=== PATIENT | female | born 1980 | race Caucasian/White ===

== ENCOUNTER 2019-07-20 07:07 | Observation (INO) | payer OTHER, SELFPAY ==
--- NOTE | ~2019-07-20 | NM_ITS ---
EXAMINATION: NM hepatobiliary w pharm DATE: 07/21/2019 09:16 INDICATION: Right lower quadrant abdominal pain. Nausea and vomiting. COMPARISON: CT abdomen and pelvis 07/20/2019 TECHNIQUE: 6.0 mCi Tc-99m mebrofenin (Choletec) was administered intravenously. Scintigraphic images of the abdomen were obtained for one hour. Then, 1.6 mcg sincalide (Kinevac) IV was administered, an d imaging was continued for 30 minutes. FINDINGS: There is normal clearance of radiotracer from the blood pool. There is homogeneous tracer u ptake by the liver. Activity progresses to the bowel and gallbladder. Gallbladder ejection fraction (GBEF) was 41%. Note that most patients with gallbladder dysfunction have GBEF < 35%, which overlaps with the broad normal range of 10-90%. IMPRESSION: 1. Normal hepatobiliary scintigraphy. Reviewed, dictated and finalized at location A. UITE DEVELOPER
--- NOTE | ~2019-07-20 | CT_ITS ---
EXAMINATION: CT cervical spine w con DATE: 07/20/2019 07:57 INDICATION: Neck pain. TECHNIQUE: Computed tomography (CT) of the cervical spine was performed with 100 mm Omnipaque 350 int ravenous contrast. Automated exposure control and iterative reconstruction technique were employed. T he dose-length product was 395.34 mGy-cm. COMPARISON: Cervical spine radiographs 02/26/2019 FINDINGS: There is kyphosis of cervical spine. There is 2 mm retrolisthesis of C5 on C6. There are di sc replacements at C5-C6 and C6-C7. Vertebral body heights are normal. There is mildly decreased disc height at C4-C5. The following disc levels are specifically discussed: C2-C3: There is no uncovertebral joint osteoarthritis. There is mild bilateral facet joint osteoarthr itis. There is no neural foraminal stenosis. There is no central canal stenosis. C3-C4: There is mild bilateral uncovertebral joint osteoarthritis. There is mild bilateral facet join t osteoarthritis. There is no neural foraminal stenosis. There is no central canal stenosis. C4-C5: There is no uncovertebral joint osteoarthritis. There is no facet joint osteoarthritis. There is no neural foraminal stenosis. There is no central canal stenosis. C5-C6: There is moderate right and mild left uncovertebral joint osteoarthritis. There is mild right facet joint osteoarthritis. There is mild bilateral neural foraminal stenosis. There is mild central canal stenosis. C6-C7: There is no uncovertebral joint osteoarthritis. There is no facet joint osteoarthritis. There is no neural foraminal stenosis. There is no central canal stenosis. C7-T1: There is no uncovertebral joint osteoarthritis. There is mild bilateral facet joint osteoarthr itis. There is no neural foraminal stenosis. There is no central canal stenosis. IMPRESSION: 1. Mild cervical spondylosis. 2. Disc replacements at C5-C6 and C6-C7. Reviewed, dictated and finalized at location A. R ENGINEER
--- NOTE | ~2019-07-20 | CT_ITS ---
EXAMINATION: CT abdomen pelvis w con DATE: 07/20/2019 07:57 INDICATION: Right lower quadrant abdominal pain, nausea and vomiting TECHNIQUE: Computed tomography (CT) of the abdomen and pelvis was performed with 100 mL Omnipaque-350 intravenous contrast. Automated exposure control and iterative reconstruction technique were employe d. The dose-length product was 681.51 mGy-cm. COMPARISON: 09/09/2018 FINDINGS: Lung bases are clear. Heart size is normal. No pericardial or pleural effusion. Liver, gallbladder, s pleen, pancreas, bilateral adrenal glands and kidneys are normal. Normal appendix. No abnormal bowel wall thickening or obstruction. The uterus is not identified and has likely been surgically resected. Decompressed bladder is unremarkable. No free intraperitoneal gas or fluid. No pathologically enlarg ed abdominal or pelvic lymphadenopathy. There are Schmorl's nodes at multiple levels throughout the t horacic and lumbar spine. Old tract for a since removed intramedullary stone at the proximal right femu r. IMPRESSION: 1. No acute intra-abdominal/pelvic process. Reviewed, dictated and finalized at location A. LAND FIRE OPERATIONS SPECIALIST
[2019-07-20 07:11] VITALS: BP 122/87; PULSE 94; RESP 18; TEMP 36.3; O2SAT 100
--- NOTE | 2019-07-20 07:19 | ED.GENADULT ---
HPI - General Adult General Chief complaint: Nausea/Vomiting/Diarrhea Stated complaint: N/V Time Seen by Provider: 07/20/19 07:19 Source: patient Mode of arrival: ambulatory Limitations: no limitations History of Present Illness HPI narrative: Patient is a 39-year-old female who presents for evaluation of nausea, vomiting, diarrhea and abdominal pain. Abdominal pain is located in her lower abdomen, described as dull, cramping in nature worse in the right lower quadrant. Patient has had no associated dysuria or hematuria. She has had numerous episodes of nausea, nonbilious, nonbloody emesis yesterday, and watery diarrhea overnight. Patient states she has been unable to tolerate oral intake since Saturday. Patient last attended the [employer], where she had pulled pork and some alcohol. No other sick contacts. No one at home with similar symptoms. She denies fever. Patient states she had a C5/C6 surgery in April at [facility], and because she has been throwing up so much, she is not having neck pain and tingling in her hands. No recent falls or injuries. Related Data Allergies Allergy/AdvReac Type Severity Reaction Status Date / Time No Known Allergies Allergy Unverified 09/09/18 15:37 Review of Systems Review of Systems: Narrative: CONSTITUTIONAL: Denies fever, chills, or sweats. EYES: Denies visual changes, redness, or discharge. ENT: Denies rhinorrhea, congestion, sore throat, or otalgia. CARDIOVASCULAR: Denies chest pain, palpitations, or edema. RESPIRATORY: Denies cough or dyspnea. GASTROINTESTINAL: Reports abdominal pain, nausea, vomiting and diarrhea GENITOURINARY: Denies dysuria or hematuria. SKIN: Denies rash or itching. MUSCULOSKELETAL: Denies back pain, joint pain, or myalgia. NEUROLOGIC: Denies headache, numbness, or weakness, reports tingling in bilateral hands. PSYCHIATRIC: Reports anxiety PMFSH Surgical History Surgical History (Updated 07/20/19 @ 07:42 by Samantha Palacios MD) H/O: hysterectomy Social History Social History (Updated 07/20/19 @ 07:42 by Samantha Palacios MD) Smoking status: Never smoker Second hand tobacco smoke exposure: No Alcohol intake: current Drinks per week: 1 Substance use: never Gender identity (if verbalized by the patient): Female Exam Narrative: Exam Narrative: GENERAL: Awake, tearful, conversant HEAD: Normocephalic, atraumatic. EYES: PERRLA and EOMI. ENT: Nares clear, no rhinorrhea or epistaxis. Mucous membranes moist. NECK: Supple. CHEST: Clear to auscultation. No respiratory distress. HEART: Regular rate and rhythm. No murmur heard. Normal peripheral pulses. ABDOMEN: Soft, tender in right lower quadrant, left lower quadrant, no rebound, no rigidity, no guarding. EXTREMITIES: Normal range of motion. No edema. SKIN: Warm, dry, no rash. NEURO:No focal deficits. Alert and oriented x3 Course Course Emergency Course: Patient presented for evaluation of nausea, vomiting and diarrhea. Patient with some alcohol intake recently, this may be gastroenteritis versus food poisoning versus pancreatitis. The time of initial assessment, ABCs are intact, vital signs are stable. No tachycardia. Mucous membranes are somewhat dry. Patient has good tear production. No leukocytosis. Elevation in hemoglobin and hematocrit consistent with dehydration. No acute kidney injury or electrolyte abnormality. No UTI. CT of the cervical spine is stable. There is no injury from her vomiting to her disc replacement sites. As for the CT abdomen/pelvis, no sign of acute pancreatitis. Patient does have an elevation in lipase which may be secondary to the dehydration and vomiting. No sign of acute pancreatitis on imaging. Patient was reassessed and continued to have nausea and vomiting despite numerous antiemetics and pain medication. At this point, patient was offered admission to our facility, but then requested to be transferred to [facility]. I was able to obtai
[2019-07-20] MEDS: SODIUM CHLORIDE 0.9% IV 1,000 ML 999 ML IV CONT ×2 (07:24→08:05)
[2019-07-20] MEDS: ONDANSETRON INJ 4 MG/2 ML VIAL IV PUSH ×4 (07:24→23:06)
[2019-07-20 07:25] LABS: Basophils Absolute Auto 0.1 K/mm3 (0.0-0.1); Basophils Percent Auto 0.9 % (0.2-1.2); Eosinophils Absolute Auto 0.1 K/mm3 (0-0.3); Hematocrit 48.3 % (37.0-47.0); Hemoglobin 16.7 g/dL (12.0-15.0); Immature Granulocyte Absolute 0.01 K/mm3 (0.00-0.031); Immature Granulocyte Percent A 0.1 % (0-0.5); Lymphocytes Absolute Auto 2.02 K/mm3 (0.9-3.2); Lymphocytes Percent Auto 29.9 % (18.3-44.2); Mean Corpuscular HGB Conc 34.6 g/dl (32-36); Mean Corpuscular Volume 89.8 fl (80-100); Mean Platelet Volume 9.5 fl (7.4-10.4); Monocytes Absolute Auto 0.4 K/mm3 (0.1-0.6); Monocytes Percent Auto 5.2 % (2.6-8.5); Neutrophils Absolute Auto 4.2 K/mm3 (1.3-6.7); Neutrophils Percent Auto 62.9 % (45.5-73.1); Platelet Count Result 275 k/mm3 (150-375); Red Blood Count 5.38 M/mm3 (4.2-5.4); Red Cell Distribution Width 12.1 % (11.5-14.5); White Blood Count 6.8 K/mm3 (4.5-10.0)
[2019-07-20 07:36] LABS: Alanine Aminotransferase 37 U/L (4-35); Albumin Level 4.8 g/dL (3.5-5.1); Alkaline Phosphatase 65 U/L (38-126); Aspartate Amino Transferase 31 U/L (14-36); Bilirubin,Total 1.7 mg/dL (0.2-1.3); Blood Urea Nitrogen 9 mg/dL (7-17); Calcium 9.4 mg/dL (8.4-10.2); Carbon Dioxide 22 mmol/L (22-30); Chloride 108 mmol/L (98-107); Estimated CRCL calculation 90 ml/min; Estimated Glomerular Filt Rate > 60; Glucose 121 mg/dL (65-105); Lipase 1002 U/L (23-300); Potassium 3.9 mmol/L (3.4-5.0); Sodium 140 mmol/L (137-145)
[2019-07-20 07:52] LABS: Add Urine Microscopic? YES; Appearance Urine Cloudy (Clear); Bacteria Urine Trace /hpf; Bilirubin Urine Negative (Negative); Blood Urine 2+ (Negative); Color Urine Yellow (Yellow); Glucose Urine UA Negative (Negative); Ketones Urine Trace mg/dL (Negative); Leukocyte Esterase Ur Negative LEU/UL (Negative); Mucus Urine Heavy /lpf; Nitrate Urine Negative (Negative); Protein Urine 1+ mg/dL (Negative); Specific Grav Ur 1.029 (1.001-1.035); Squamous Epithelial Cell Urine Many /hpf (Few); Urobilinogen Urine Negative mg/dL (<2.0); WBC Urine 0-3 /hpf
[2019-07-20] MEDS: DICYCLOMINE HCL INJ 20 MG/2 ML VIAL IM (08:05)
[2019-07-20 09:55] VITALS: BP 113/64; PULSE 67; RESP 16; O2SAT 98
[2019-07-20] MEDS: LORAZEPAM INJ 2 MG/ML VIAL 0.5 MG IV PUSH (10:22)
[2019-07-20 11:05] VITALS: BP 114/83; PULSE 68; RESP 18; O2SAT 98
--- NOTE | 2019-07-20 11:23 | ADMGEN ---
This patient, Abby Epstein, was admitted to Medical Room 250-. Patient/family oriented to hospital policies and general routines including ID bracelet, bed and alarms, visiting hours, pain management, procedures, bathroom and other care routines, personal items, smoking policy, room service/diet, and visiting hours. Valuables list has been completed. Information on how to activate the Rapid Response Team has been discussed. Patient/Family are encouraged to report perceived risks to care and to ask questions if they do not understand what they are told or what they should do.
[2019-07-20 11:34] VITALS: BP 115/83; PULSE 63; RESP 17; TEMP 36.6; O2SAT 98; BMI 29.0
[2019-07-20 11:35] VITALS: BMI 28.8
[2019-07-20] MEDS: SODIUM CHLORIDE 0.9% IV 1,000 ML 125 ML IV CONT ×2 (12:01→19:42)
[2019-07-20] MEDS: MORPHINE SULFATE 4 MG/ML INJ IV PUSH ×3 (12:13→23:06)
--- NOTE | 2019-07-20 13:11 | PM.IMHP ---
H&P: HPI History of Present Illness Chief complaint: dehydration/elevated lipase Narrative: Abby Epstein is a 39 year old female who came to the emergency room to be evaluated for nausea vomiting and diarrhea. The patient went to a [employer] this Saturday. She stated that she drank 1 and half beers. First beer was draft beer beer and the 2nd 1 was a half a bottle of beer. She typically drinks maybe once a week. She was not intoxicated. The patient also ate pulled pork while she was there. She stated that her ate the same thing as her and that he did not get sick. She has not been around any sick contacts. Other than her 2 boys having influenza B approximately 2 weeks ago. The patient has already completed the 10 day course of Tamiflu. She has not started on any new medications. The patient had cervical spine surgery on 05/07/2019. She was concerned that she may have some issues with her neck due to the excessive amount of vomiting. She tells me she has vomited at least 7 times since Saturday. She did not notice any blood. She denies any fever. She has some pain and tingling to her hands but she tells me this is chronic and that is why she is on the gabapentin. No recent falls or injuries. She has never had an episode like this before. She still has her gallbladder but has not had any problems with her gallbladder. She had acid reflux in high school but nothing since then. Date of service 07/20/2019. On IV fluids, Zofran, Bentyl, and Ativan in the emergency room. Patient was somewhat tearful in the emergency room but appears to be okay now. Is there was some concern for the patient being transferred back to [facility] where she had her surgery performed but then decided to stay here. Patient is here for nausea control and hydration. Review of Systems Review of Systems: All systems reviewed & are unremarkable except as noted in HPI and below Constitutional: Constitutional: Reports as per HPI and Reports no additional constitutional complaints Eyes: Eyes: Reports as per HPI and Reports no additional eye complaints ENT: Reports system reviewed and no additional complaints, except as documented and Reports Normal hearing present Cardiovascular: Cardiovascular: Reports no additional cardiovascular complaints Respiratory: Respiratory: Reports no additional respiratory complaints and Reports no additional respiratory complaints Gastrointestinal: Gastrointestinal: Reports as per HPI, Reports diarrhea, Reports nausea and Reports vomiting Musculoskeletal: Musculoskeletal: Reports no additional musculoskeletal complaints Integumentary/Breasts: Skin/Breast: Reports system reviewed and no additional complaints, except as docu and Reports as per HPI Neurologic: Reports system reviewed and no additional complaints, except as documented, Reports as per HPI and Reports Normal hearing present Comments: Numbness to fingers on the right side which is chronic Psychiatric: Psychiatric: Reports no additional psychiatric complaints and Reports as per HPI Endocrine: Endocrine: Reports no additional endocrine complaints Hematologic/Lymphatic: Hematologic/Lymphatic: Reports no additional hematologic/lymphatic complaints Allergic/Immunologic: Allergic/Immunologic: Reports no additional allergic/immunologic complaints PMF Past Medical History Medical History (Updated 07/20/19 @ 13:[address] NP) Anxiety Endometriosis GERD without esophagitis In hs Neuropathy of right hand Surgery, elective femoral shortening Surgical History Surgical History (Updated 07/20/19 @ 13:[address] NP) H/O cervical spine surgery C5 through C6 H/O section X2 H/O: hysterectomy Related to endometriosis Family History Family History (Updated 07/20/19 @ 13:[address] NP) Mother Coronary artery disease Pacemaker Father Rheumatoid arthritis Social History Social H
[2019-07-20 22:00] VITALS: BP 113/61; PULSE 53; RESP 20; TEMP 36.7; O2SAT 98
[2019-07-20] MEDS: FAMOTIDINE 20 MG/2 ML VIAL IV PUSH (23:01)
[2019-07-21] MEDS: SODIUM CHLORIDE 0.9% IV 1,000 ML 125 ML IV CONT (04:33)
[2019-07-21] MEDS: MORPHINE SULFATE 4 MG/ML INJ IV PUSH ×2 (04:37→09:46)
[2019-07-21] MEDS: ONDANSETRON INJ 4 MG/2 ML VIAL IV PUSH (04:38)
[2019-07-21 05:28] LABS: Basophils Percent Auto 0.5 % (0.2-1.2); Eosinophils Absolute Auto 0.1 K/mm3 (0-0.3); Eosinophils Percent Auto 1.4 % (0-4.4); Hematocrit 38.7 % (37.0-47.0); Hemoglobin 12.7 g/dL (12.0-15.0); Immature Granulocyte Absolute 0.01 K/mm3 (0.00-0.031); Immature Granulocyte Percent A 0.2 % (0-0.5); Lymphocytes Absolute Auto 1.78 K/mm3 (0.9-3.2); Lymphocytes Percent Auto 30.6 % (18.3-44.2); Mean Corpuscular HGB Conc 32.8 g/dl (32-36); Mean Corpuscular Hemoglobin 30.4 pg (26-34); Mean Corpuscular Volume 92.6 fl (80-100); Mean Platelet Volume 9.7 fl (7.4-10.4); Monocytes Absolute Auto 0.3 K/mm3 (0.1-0.6); Monocytes Percent Auto 5.5 % (2.6-8.5); Neutrophils Absolute Auto 3.6 K/mm3 (1.3-6.7); Neutrophils Percent Auto 61.8 % (45.5-73.1); Platelet Count Result 185 k/mm3 (150-375); Red Blood Count 4.18 M/mm3 (4.2-5.4); White Blood Count 5.8 K/mm3 (4.5-10.0)
[2019-07-21 05:41] LABS: Lipase 1235 U/L (23-300); Magnesium 1.9 mg/dL (1.6-2.3)
[2019-07-21 06:00] VITALS: BP 107/63; PULSE 54; RESP 20; TEMP 36.2; O2SAT 99
--- NOTE | 2019-07-21 10:04 | PC.NURSE ---
729 - bedside shift report with off going nurse. Pt taken for NM scan at this time. 906 - pt returned to the floor via transport. 929 - pt assessed and pt wishes to talk to doctor immediately regarding her pain. FELICE Rodrigez notified and stated she will come to bedside to come see patient. Per FELICE< OK to give IV morphine but nothing by mouth including oral medications. Pt also c/o nausea but refused IV zofran. Pt states she wants to be transferred to [facility].
--- NOTE | 2019-07-21 10:35 | PM.IMPN ---
Progress Note: A&P Assessment and Plan (1) Elevated lipase: Code(s): R74.8 - Abnormal levels of other serum enzymes Status: Acute Assessment and Plan: -----lipase elevated again today 1235. Looks like bilirubin is slightly elevated 1.7 and her ALT is slightly up. HIDA scan reviewed with no abnormalities. Because of her increased pain, increased liver enzymes, and increased bilirubin I have offered the patient MRCP which she has refused. I explained why the additional workup is needed and she refuses. She would like to be transferred to [facility]. I have called their transfer line and awaiting to hear back. (2) Nausea & vomiting: Qualifiers: Vomiting Intractability: intractable Vomiting type: unspecified Qualified Code(s): R11.2 - Nausea with vomiting, unspecified Code(s): R11.2 - Nausea with vomiting, unspecified Status: Acute Assessment and Plan: -----see above. (3) Dehydration: Code(s): E86.0 - Dehydration Status: Acute Assessment and Plan: -----BUN and creatinine normal. Maybe slightly dry due to previous vomiting. Unable to do exam (4) Anxiety: Code(s): F41.9 - Anxiety disorder, unspecified Status: Chronic Assessment and Plan: -----p.r.n. Ativan, none taken so far (5) Menopause: Code(s): Z78.0 - Asymptomatic menopausal state Status: Acute Assessment and Plan: ----chronic (6) Neuropathy of right hand: Code(s): G56.91 - Unspecified mononeuropathy of right upper limb Status: Chronic Assessment and Plan: -----patient states this started after her spine surgery and is related to her degenerative disc disease and bulging discs that she had surgery for in April. This has been worse since she has been throwing up. I recommend an MRI of her C-spine since she did have a CT of it when she came in. She refuses. She now says her left arm is numb and started after the morphine has been given. Patient refusing exam or further workup. Understands the risk. Will talk to mobap. (7) Degeneration of C5-C6 intervertebral disc: Code(s): M50.322 - Other cervical disc degeneration at C5-C6 level Status: Acute Assessment and Plan: -----she should continue following up with her neurosurgeon. As stated above, recommend MRI of C-spine. Patient refuse exam. (8) Arm numbness: Code(s): R20.0 - Anesthesia of skin Status: Acute Assessment and Plan: -----see above Time Spent With Patient Time with patient: 15 - 25 minutes Subjective Date/time seen: 07/21/19 10:35 Interval history: Pt is a 39-year-old female here for nausea and vomiting. Patient was seen today at 1015am with family at bedside. She had concerns because she has not been seen all day and she feels like she is not being taking care of. Patient states that she has been nauseous and did have some vomiting but refused to answer any of my questions. She did tell me that she had spinal surgery in April and since she has been throwing up her neck has been hurting. She refused an exam or to answer any my other questions but did mention that both of her arms or numb. I explained to her that we would need further workup or to call her spine surgeon and she refused. She says she wants to be transferred to [facility], which is not where her spinal surgeon is. I talked her about plan for her workup for her nausea, vomiting, and her now bilateral arm numbness. She says she does not want to pursue any further testing here and would like to be transferred. Reviewed risk and she appears to understand. She said she will leave [facility] if she has to. I Educated her on the importance of further workup in which she has declined. Patient is alert and oriented x4. Family at bedside agrees with the patient. I have called [facility] and I am waiting to hear back from the GI team there. Review of
--- NOTE | 2019-07-21 10:55 | PM.TDS ---
Transfer Discharge Sum: Prov Provider Date of admission: 07/20/19 10:21 Primary care physician: Clair Haro MD Admitting clinician: Mckenzie Starr MD Receiving physician/facility: Dr. Argueta [facility] DS: Diagnosis Admitting Diagnosis Admitting Diagnosis: Abnormal levels of other serum enzymes Discharge Diagnosis (1) Elevated lipase: Code(s): R74.8 - Abnormal levels of other serum enzymes Status: Acute Assessment and Plan: -----lipase elevated again today 1235. Looks like bilirubin is slightly elevated 1.7 and her ALT is slightly up. HIDA scan reviewed with no abnormalities. I ordered another hepatic panel to assess her bili and LFT but she refused. Because of her increased pain, increased liver enzymes, and increased bilirubin I have offered the patient MRCP which she also refused here at our hospital. She would like to be transferred to [facility]. I spoke with Dr. Argueta who accepted the patient. (2) Nausea & vomiting: Qualifiers: Vomiting Intractability: intractable Vomiting type: unspecified Qualified Code(s): R11.2 - Nausea with vomiting, unspecified Code(s): R11.2 - Nausea with vomiting, unspecified Status: Acute Assessment and Plan: -----see above. (3) Dehydration: Code(s): E86.0 - Dehydration Status: Acute Assessment and Plan: -----BUN and creatinine normal. Maybe slightly dry due to previous vomiting. Unable to do exam (4) Anxiety: Code(s): F41.9 - Anxiety disorder, unspecified Status: Chronic Assessment and Plan: -----p.r.n. Ativan, none taken so far (5) Menopause: Code(s): Z78.0 - Asymptomatic menopausal state Status: Acute Assessment and Plan: ----chronic (6) Neuropathy of right hand: Code(s): G56.91 - Unspecified mononeuropathy of right upper limb Status: Chronic Assessment and Plan: -----patient states this started after her spine surgery and is related to her degenerative disc disease and bulging discs that she had surgery for in April. This has been worse since she has been throwing up. I recommend an MRI of her C-spine since she did have a CT of it when she came in. She refused. She now says her left arm is numb and started after the morphine has been given. Patient refusing exam or further workup. Understands the risk. Spoke with Dr. Argueta about this as well. (7) Degeneration of C5-C6 intervertebral disc: Code(s): M50.322 - Other cervical disc degeneration at C5-C6 level Status: Acute Assessment and Plan: -----she should continue following up with her neurosurgeon. As stated above, recommend MRI of C-spine. Patient refuse exam. (8) Arm numbness: Code(s): R20.0 - Anesthesia of skin Status: Acute Assessment and Plan: -----see above Transfer Discharge Sum: Med Medications Active and Home Medications: Home Medications baclofen 10 mg PO Q8H 07/20/19 [History Confirmed 07/20/19] cyclobenzaprine 5 mg PO Q8H PRN 07/20/19 [History Confirmed 07/20/19] estrogens-methyltestosterone 1 tablet PO HS 07/20/19 [History Confirmed 07/20/19] gabapentin 300 mg PO TID 07/20/19 [History Confirmed 07/20/19] hydrocodone-acetaminophen [[place]] 1 tablet PO Q8H PRN 07/20/19 [History Confirmed 07/20/19] vortioxetine [Trintellix] 20 mg PO HS 07/20/19 [History Confirmed 07/20/19] Transfer Discharge Sum: Hosp Hospital Course Hospital course: Abby Epstein is a 39 year old female who presented emergency room for abdominal pain, nausea, vomiting and diarrhea. Temperature in the ER 36.3, pulse 94, respiratory rate 18, blood pressure 122/87, pulse ox 100 on room air. White blood cell count normal 6.8. BMP relatively normal with exception of chloride 108 and renal glucose 121. Lipase initially elevated 1002. Negative for influenza. Patient had abdominal pelvis CT which showed no acute in
--- NOTE | 2019-07-21 11:02 | PC.NURSE ---
I went in to see the patient. She does not want hooked back up to her IV fluids. She does not want Zofran. She wants to wait for her transfer to [facility].
--- NOTE | 2019-07-21 11:10 | PC.NURSE ---
Pt stated she had an allergic reaction with IV morphine. Pt has received medication this admission with no other issues. Pt was itching left arm and complaining of numbness briefly but has had no issue since. FELICE Rodrigez notified and came to see pt at bedside. Pt states she does not want IV morphine any longer and has no current distress in her left arm where medication was administered through IV.
--- NOTE | 2019-07-21 13:12 | PC.NURSE ---
RN checked on pt. Pt resting comfortably and verbalized no needs at this time.
--- NOTE | 2019-07-21 14:35 | PC.NURSE ---
On 07/21/19, the Jes, [CHANTAL Gaviria], provided care and completed [facility] documentation on this patient. I have reviewed the Jes's documentation and agree with the findings.
--- NOTE | 2019-07-21 15:49 | PC.NURSE ---
Pt transferred via [facility] to [facility] at 14:35. Report given to CHANTAL Crowder.
== END 2019-07-21 14:35 | disposition short-term general hospital (02) ==
LOC: ANHED 10:26 → ANH2MED 10:40
PROVIDERS: Nurse Practitioner; Admitting Provider Hospitalist; Emergency Provider Emergency Medicine; PCP Family Medicine; Visit Provider Physician Assistant
DX: E86.0 Dehydration (principal); R74.8 Abnormal levels of other serum enzymes; R11.2 Nausea with vomiting, unspecified; R10.31 Right lower quadrant pain; F41.9 Anxiety disorder, unspecified; Z78.0 Asymptomatic menopausal state; G56.91 Unspecified mononeuropathy of right upper limb; M50.322 Other cervical disc degeneration at C5-C6 level; R20.0 Anesthesia of skin; K21.9 Gastro-esophageal reflux disease without esophagitis; Z79.890 Hormone replacement therapy; Z79.899 Other long term (current) drug therapy; Z98.890 Other specified postprocedural states
CPT/HCPCS: 36415; 72126; 74177; 78227; 80053; 81001; 83690; 83735; 84443; 85025; 87804; 96361; 96372; 96374; 96375; 96376; 99285; A9537; G0378; J0500; J2060; J2270; J2405; J2805; J7030; Q9967

== ENCOUNTER 2020-04-06 13:52 | Outpatient (CLI) | payer OTHER, SELFPAY ==
[2020-04-06 14:35] LABS: Basophils Absolute Auto 0.1 K/mm3 (0.0-0.1); Basophils Percent Auto 0.9 % (0.2-1.2); Eosinophils Absolute Auto 0.1 K/mm3 (0-0.3); Eosinophils Percent Auto 0.8 % (0-4.4); Hematocrit 42.1 % (37.0-47.0); Hemoglobin 14.3 g/dL (12.0-15.0); Immature Granulocyte Absolute 0.02 K/mm3 (0.00-0.031); Immature Granulocyte Percent A 0.3 % (0-0.5); Lymphocytes Absolute Auto 2.05 K/mm3 (0.9-3.2); Lymphocytes Percent Auto 31.1 % (18.3-44.2); Mean Corpuscular Hemoglobin 30.8 pg (26-34); Mean Corpuscular Volume 90.7 fl (80-100); Mean Platelet Volume 8.8 fl (7.4-10.4); Monocytes Absolute Auto 0.3 K/mm3 (0.1-0.6); Monocytes Percent Auto 5.2 % (2.6-8.5); Neutrophils Absolute Auto 4.1 K/mm3 (1.3-6.7); Neutrophils Percent Auto 61.7 % (45.5-73.1); Platelet Count Result 237 k/mm3 (150-375); Red Blood Count 4.64 M/mm3 (4.2-5.4); Red Cell Distribution Width 11.9 % (11.5-14.5); White Blood Count 6.6 K/mm3 (4.5-10.0)
[2020-04-06 14:49] LABS: Alanine Aminotransferase 22 U/L (4-35); Albumin Level 4.5 g/dL (3.5-5.1); Alkaline Phosphatase 58 U/L (38-126); Anion Gap 6 mmol/L (8-16); Aspartate Amino Transferase 28 U/L (14-36); Blood Urea Nitrogen 8 mg/dL (7-17); Calcium 9.2 mg/dL (8.4-10.2); Carbon Dioxide 31 mmol/L (22-30); Chloride 105 mmol/L (98-107); Estimated Glomerular Filt Rate > 60; Glucose 86 mg/dL (65-105); Lipase 745 U/L (23-300); Sodium 142 mmol/L (137-145)
== END 2020-04-06 13:53 | disposition home or self-care (01) ==
PROVIDERS: PCP Family Medicine; Visit Provider Internal Medicine Gastroenterology
DX: K85.90 Acute pancreatitis without necrosis or infection, unspecified (principal); R11.2 Nausea with vomiting, unspecified
CPT/HCPCS: 36415; 80053; 83690; 85025

== ENCOUNTER 2020-05-04 09:18 | Outpatient (CLI) | payer OTHER, SELFPAY ==
--- NOTE | ~2020-05-04 | MR_ITS ---
EXAMINATION: MR MRCP wo/w con/w 3D wo ind DATE: 05/04/2020 10:44 INDICATION: Acute pancreatitis without necrosis or infection, unspecified. Nausea and vomiting. TECHNIQUE: Magnetic resonance imaging (MRI) of the abdomen was performed without and with 15 mL Multi Michelle intravenous contrast. Sequences included coronal T2-weighted FS FSE, coronal T2-weighted FSE, a xial T1-weighted LAVA, coronal FS FIESTA, axial dual-echo T1-weighted SPGR, coronal lava-FLEX, sagitt al T2-weighted FSE, axial T2-weighted FSE, and axial DWI. Thick-slab T2-weighted FSE images were obta ined for magnetic resonance cholangiopancreatography (MRCP). Maximum intensity projection 3-D reconst ructions of the volumetric data were created by the technologist. Postcontrast sequences included cor onal LAVA-flex and time course of axial T1-weighted LAVA. COMPARISON: CT abdomen and pelvis 07/20/2019, ultrasound 05/04/2020 FINDINGS: ABDOMEN MRI: The liver, gallbladder, pancreas, adrenal glands, and kidneys are normal. There is a 7 m m cyst in the spleen. There are no dilated loops of bowel. There are no pathologically enlarged lymph nodes. There is no free intraperitoneal fluid. ABDOMEN MRCP: The common duct is normal and measures 5 mm. No choledocholithiasis. IMPRESSION: 1. Normal pancreas and biliary tree. Reviewed, dictated and finalized at location A. ICULTURAL FARMWORKER
--- NOTE | ~2020-05-04 | US_ITS ---
US abdomen limited INDICATION: Pancreatitis PROCEDURE: Realtime right upper abdominal ultrasound. COMPARISON: Nuclear hepatobiliary scan dated 07/21/[address] dated 07/20/2019 FINDINGS: The pancreas is normal without focal mass or pancreatic ductal dilation. Liver echotexture is normal without focal mass or intrahepatic biliary dilatation. There is normal directional flow i n the portal vein. There are at least 2 gallbladder polyps, largest measuring 3 mm. No gallstones, gallbladder wall thic kening or pericholecystic fluid. Common bile duct measures 3 mm. No sonographic Glaser's sign. IMPRESSION: 1: Gallbladder polyps. Reviewed, dictated and finalized at location A. ING CONTRACTOR IMPRESSION: 1: Gallbladder polyps.
== END 2020-05-04 09:19 | disposition home or self-care (01) ==
PROVIDERS: PCP Family Medicine; Visit Provider Internal Medicine Gastroenterology
DX: K85.90 Acute pancreatitis without necrosis or infection, unspecified (principal); R74.8 Abnormal levels of other serum enzymes; R11.2 Nausea with vomiting, unspecified; D73.4 Cyst of spleen; K82.4 Cholesterolosis of gallbladder
CPT/HCPCS: 74183; 76376; 76705; A9577

== ENCOUNTER 2020-05-24 01:01 | Outpatient (CLI) | payer OTHER, SELFPAY ==
[2020-05-24 19:42] LABS: SARS-CoV-2 RNA PCR Negative
== END 2020-05-24 01:02 | disposition home or self-care (01) ==
LOC: ANHCOVIDDT 01:01
PROVIDERS: PCP Family Medicine; Visit Provider Internal Medicine Gastroenterology
DX: Z01.812 Encounter for preprocedural laboratory examination (principal); Z20.822 Contact with and (suspected) exposure to COVID-19
CPT/HCPCS: C9803; U0003

== ENCOUNTER 2020-05-27 00:24 | Day surgery (SDC) | payer OTHER, SELFPAY ==
[2020-05-11 14:16] VITALS: BMI 26.9
[2020-05-27] MEDS: LACTATED RINGERS 1,000 ML 150 ML IV CONT (11:02)
--- NOTE | 2020-05-27 11:06 | WPDANESEPPF ---
Anes - Initial Pre Proc Eval Procedure: Operation Date: 05/27/20 12:00 Proposed Procedures p Esophagogastroduodenoscopy - Everardo Han MD Date/Time: 05/27/20 11:06 Surgeon: Everardo Han MD Pre Op Diagnosis: Pancreatitis Patient Data Age: 40 Gender: F Height: 5 ft 7 in Weight: 78 kg Allergies Allergy/AdvReac Type Severity Reaction Status Date / Time No Known Allergies Allergy Verified 05/27/20 10:36 Home Medications Medication Instructions Recorded Confirmed Type cyclobenzaprine 5 mg PO Q8H PRN 07/20/19 05/11/20 History vortioxetine 20 mg tablet 20 mg PO HS #90 tablet 08/10/19 05/11/20 Rx alprazolam 0.5 mg tablet 0.5 mg PO DAILY #30 tablet 11/18/19 05/11/20 Rx esterified 1 tablet PO HS #90 tablet 03/17/20 05/11/20 Rx estrogens-methyltestosterone 0.625 mg-1.25 mg tablet ondansetron HCl 4 mg tablet 4 mg PO Q8H PRN #90 tablet 04/06/20 05/11/20 Rx buspirone 7.5 mg tablet 7.5 mg PO BID #60 tablet 04/29/20 05/11/20 Rx ascorbic acid (vitamin C) 1 g PO DAILY 05/11/20 05/11/20 History pancreatin 500 mg PO DAILY 05/11/20 05/11/20 History Patient hx anesthesia problems: none Family hx anesthesia problems: none PMFSH Past Medical History Medical History Anxiety Endometriosis GERD without esophagitis In hs Nausea and vomiting in adult Neuropathy of right hand Pancreatitis Surgery, elective femoral shortening Surgical History Surgical History H/O cervical spine surgery C5 through C6 H/O section X2 H/O: hysterectomy Related to endometriosis Family History Family History Mother Coronary artery disease Pacemaker Father Rheumatoid arthritis Mother Family history of osteoporosis Family history of cardiovascular disease Grandparent Family history of osteoporosis Other Family history of malignant neoplasm of ovary Social History Social History Social History: The patient is lives with her . He has a power economics consultant. They have 2 sons. 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 She desires to be a full code. She is a nonsmoker. She drinks approximately 1 drink a week. Smoking status: Never smoker Second hand tobacco smoke exposure: No Smoking end date: 05/20/06 Alcohol intake: current Drinks per week: 2 Substance use: never Substance use type: does not use Living arrangements: with family Gender identity (if verbalized by the patient): Female Spiritual care concerns: No Agree to blood products: Yes Anes - Eval Final PreProcedure Day of Procedure 05/27/20 11:06 Patient weight: overweight Heart: regular rate and rhythm Lungs: clear to auscultation Airway: Mallampati scale class II Neurological: alert and oriented Last oral intake: >/= 8 hours ASA classification: II Emergent: no Anesthetic plan: proceed Anesthesia type and monitoring: general GIVS and standard monitoring Informed Consent: The patient's anesthetic plan and its attendant risks and benefits were discussed with the patient/family/POA. Questions were solicited and answers provided to the satisfaction of the patient/family/POA.
[2020-05-27 11:11] VITALS: BP 119/90; PULSE 85; RESP 20; TEMP 36.2; O2SAT 99
--- NOTE | 2020-05-27 12:10 | PM.HPGS ---
History of Present Illness History of Present Illness Consent: Risks, benefits, and alternatives have been discussed and questions answered. Patient agrees to proceed with procedure. Chief complaint: Pancreatitis Narrative: Abby Epstein is a 40 year old female with first episode of pancreatitis months ago, unknown etiology, also normal MRCP. Nausea but better with zofran. Review of Systems Constitutional: Constitutional: Denies headache(s) and Denies weakness Eyes: Eyes: Denies blurry vision ENT: Reports Normal hearing present, Denies headache(s) and Denies neck pain Cardiovascular: Cardiovascular: Denies chest pain and Denies dyspnea Respiratory: Respiratory: Denies dyspnea Gastrointestinal: Gastrointestinal: Reports no additional gastrointestinal complaints Genitourinary: Genitourinary: Denies dysuria Musculoskeletal: Musculoskeletal: Denies neck pain Integumentary/Breasts: Skin/Breast: Denies dry skin Neurologic: Reports Normal hearing present, Denies headache(s) and Denies weakness Psychiatric: Psychiatric: Denies anxiety Endocrine: Endocrine: Denies change in body appearance Hematologic/Lymphatic: Hematologic/Lymphatic: Denies easy bleeding Allergic/Immunologic: Allergic/Immunologic: Denies urticaria PMFSH Past Medical History Medical History Anxiety Endometriosis GERD without esophagitis In hs Nausea and vomiting in adult Neuropathy of right hand Pancreatitis Surgery, elective femoral shortening Surgical History Surgical History H/O cervical spine surgery C5 through C6 H/O section X2 H/O: hysterectomy Related to endometriosis Family History Family History Mother Coronary artery disease Pacemaker Father Rheumatoid arthritis Mother Family history of osteoporosis Family history of cardiovascular disease Grandparent Family history of osteoporosis Other Family history of malignant neoplasm of ovary Social History Social History Social History: The patient is lives with her . He has a power claim attorney. They have 2 sons. 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 She desires to be a full code. She is a nonsmoker. She drinks approximately 1 drink a week. Smoking status: Never smoker Second hand tobacco smoke exposure: No Smoking end date: 05/20/06 Alcohol intake: current Drinks per week: 2 Substance use: never Substance use type: does not use Living arrangements: with family Gender identity (if verbalized by the patient): Female Spiritual care concerns: No Agree to blood products: Yes Meds Home Medications and Allergies Home Medications Medication Instructions Recorded Confirmed Type cyclobenzaprine 5 mg PO Q8H PRN 07/20/19 05/11/20 History vortioxetine 20 mg tablet 20 mg PO HS #90 tablet 08/10/19 05/11/20 Rx alprazolam 0.5 mg tablet 0.5 mg PO DAILY #30 tablet 11/18/19 05/11/20 Rx esterified 1 tablet PO HS #90 tablet 03/17/20 05/11/20 Rx estrogens-methyltestosterone 0.625 mg-1.25 mg tablet ondansetron HCl 4 mg tablet 4 mg PO Q8H PRN #90 tablet 04/06/20 05/11/20 Rx buspirone 7.5 mg tablet 7.5 mg PO BID #60 tablet 04/29/20 05/11/20 Rx ascorbic acid (vitamin C) 1 g PO DAILY 05/11/20 05/11/20 History pancreatin 500 mg PO DAILY 05/11/20 05/11/20 History Allergies Allergy/AdvReac Type Severity Reaction Status Date / Time No Known Allergies Allergy Verified 05/27/20 10:36 Vital Signs Vital Signs - 24 hr 05/27/20 11:11 Temperature 97.2 F L Pulse Rate 85 Respiratory Rate 20 Blood Pressure 119/90 Pulse Oximetry 99 Exam Const: General: comfortable and no acute distress HENMT: General nose exam: Normal nares present Eyes: General: appearance normal, both eyes and all related structures N
[2020-05-27] MEDS: BENZOCAINE (*SP) 60 ML SPRAY CAN (HURRICAINE) 1 SPRAY MUCOUS MEM (12:16)
[2020-05-27 12:30] VITALS: BP 119/76; PULSE 66; RESP 14; O2SAT 98
[2020-05-27 12:40] VITALS: BP 122/72; PULSE 64; RESP 18; O2SAT 100
[2020-05-27 12:50] VITALS: BP 112/74; PULSE 60; RESP 20; O2SAT 100
== END 2020-05-27 12:59 | disposition home or self-care (01) ==
PROVIDERS: PCP Family Medicine; Visit Provider Internal Medicine Gastroenterology
PROC: 0DJ08ZZ Inspection of Upper Intestinal Tract, Via Natural or Artificial Opening Endoscopic (ICD-10-PCS; CPT 43235; principal; 2020-05-27 12:00)
DX: R11.0 Nausea (principal); Z87.19 Personal history of other diseases of the digestive system; K21.9 Gastro-esophageal reflux disease without esophagitis; F41.9 Anxiety disorder, unspecified; N80.9 Endometriosis, unspecified; G62.9 Polyneuropathy, unspecified
CPT/HCPCS: 43239; 88305; C9803; J2001; J2704; J7120; U0003